=== PATIENT | female | born 1950 | race Caucasian/White ===

== ENCOUNTER → 2018-12-13 | Outpatient (CLI) | payer MEDICARE ==
[~2018-12-13] MED LIST: ALBU8.5H8 IH; ASPI-496 PO; CHLO25TA PO; FLUT1DIS3 INH; FURO-93 PO; GLIP10TA24 PO; HYOS0.1260 PO; LEVO175T5 PO; LOSA100T14 PO; METF850T10 PO; METO25TA35 PO; MUPI15CR TP; ONDA4TAB7 PO; PIOG15TA22 PO; SIMV20TA3 PO; TRAM50TA2 PO
== END | disposition home or self-care (01) ==
LOC: CFH 15:53
PROVIDERS: ATTEND Family Medicine
DX: I73.9 Peripheral vascular disease, unspecified (principal); R60.9 Edema, unspecified; M79.661 Pain in right lower leg

== ENCOUNTER 2019-09-11 16:07 | Outpatient (CLI) | payer MEDICARE | END 2019-09-11 23:59 | disposition home or self-care (01) | LOC: CFH 16:07 | PROVIDERS: ATTEND Family Medicine | DX: R22.2 Localized swelling, mass and lump, trunk (principal) | CPT/HCPCS: 76536 ==